=== PATIENT | male | born 1955 | race Caucasian/White ===

== ENCOUNTER → 2016-07-10 | Outpatient (CLI) | payer BC ==
--- NOTE | 2016-07-11 08:26 | XR ---
Cervical spine HISTORY: Neck pain, pain down right arm 5 views of the cervical spine Cervical vertebral bodies show preserved height, alignment is remarkable for anterolisthesis grade 1 C4-5. Multilevel spondylosis is present, loss of disc height at C3-4, C5-6. Bone mineralization is mi ldly reduced. Foraminal encroachment present on the left at C6-7. Lower right-sided foramina not well visualized. IMPRESSION: Degenerative disc disease, foraminal encroachment, cervical MRI may be of benefit
== END | disposition home or self-care (01) ==
LOC: RADXRYALE 10:57
PROVIDERS: ATTEND Physician Assistant Medical
DX: M50.10 Cervical disc disorder with radiculopathy, unspecified cervical region (principal)
CPT/HCPCS: 72050

== ENCOUNTER → 2016-07-30 | Outpatient (CLI) | payer BC ==
--- NOTE | 2016-07-30 12:29 | MR ---
MRI CERVICAL SPINE: CLINICAL HISTORY: Right arm pain, degenerative disc disease, cervicalgia, and cervical radiculopathy all per order. TECHNIQUE: Multiplanar, multisequence imaging of the cervical spine is performed without IV contrast. COMPARISON: None. FINDINGS: Sagittal images of the cervical spine show the craniocervical junction to appear within nor mal limits. The cervical and upper thoracic spinal cord is normal in course, caliber, and signal. V ertebral alignment is anatomic. The vertebral body and intravertebral disk heights are normal. There are posterior disc herniations effacing anterior thecal sac at C5-C6 and C6-C7 levels on sagittal im ages. The bone marrow signal intensity is within normal limits. No significant spurring is seen. Axial images show the C2-C3, C3-C4, C4-C5 levels all to appear within normal limits. Axial images at C5-C6 level show uncovertebral facet degenerative changes and broad-based posterior d isc protrusion effacing anterior thecal sac with moderate left and mild right-sided neural foraminal narrowing noted. Axial images at C6-C7 level show broad-based posterior disc protrusion effacing anterior thecal sac a nd causing moderate to severe bilateral neural foraminal narrowing. Axial images at C7-T1 level are felt within normal limits. IMPRESSION: Disc herniations at C5-C6 and C6-C7 level are noted as detailed above.
== END | disposition home or self-care (01) ==
LOC: RADMRIMAIN 11:36
PROVIDERS: ATTEND Physician Assistant Medical
DX: M50.122 Cervical disc disorder at C5-C6 level with radiculopathy (principal); M50.10 Cervical disc disorder with radiculopathy, unspecified cervical region; M79.601 Pain in right arm
CPT/HCPCS: 72141

== ENCOUNTER → 2017-03-26 | Outpatient (CLI) | payer BC ==
--- NOTE | 2017-03-26 14:52 | XR ---
EXAMINATION TYPE: XR toes RT DATE OF EXAM: 03/26/2017 COMPARISON: NONE HISTORY: Possible toast liver TECHNIQUE: 2 views distal digits FINDINGS: Joint spaces are preserved. There is varus deformity of the distal fifth and fourth digits. Valgus deformity of the first digit is present at the metatarsal phalangeal joint space. No radiopaque foreign bodies are evident. IMPRESSION: 1. No radiopaque foreign bodies identified. 2. Degenerative changes.
== END | disposition home or self-care (01) ==
LOC: RADXRYALE 13:36
PROVIDERS: ATTEND Physician Assistant Medical
DX: R93.7 Abnormal findings on diagnostic imaging of other parts of musculoskeletal system (principal); M79.674 Pain in right toe(s)

== ENCOUNTER → 2018-01-15 | Outpatient (CLI) | payer BC ==
--- NOTE | 2018-01-15 11:21 | XR ---
EXAMINATION TYPE: XR knee complete RT DATE OF EXAM: 01/15/2018 CLINICAL HISTORY: Right knee pain for one month TECHNIQUE: Three views of the right knee are obtained. COMPARISON: None. FINDINGS: There is no acute fracture/dislocation evident in right knee. Mild tricompartment joint sp radha loss is seen without significant spurring. The overlying soft tissue appears unremarkable. IMPRESSION: As above.
== END ==
LOC: RADXRYALE 10:26
PROVIDERS: ATTEND Physician Assistant
DX: M25.561 Pain in right knee (principal)

== ENCOUNTER 2018-07-08 20:44 | Emergency (ER) | payer BC ==
[2018-07-08] MEDS ORDERED: DIPH,PERTUS(ACELL)TETVAC-LF 0.5 ML VIAL IM ONE (21:26)
[2018-07-08] MEDS ORDERED: WATER FOR IRRIG, STERILE 1,000 ML BTL IRRIGATION ONE (22:08)
[2018-07-08] MEDS ORDERED: LIDOCAINE 1% INJ 10MG/ML (20 ML MDV) SQ STA (22:08)
--- NOTE | 2018-07-08 22:13 | XR ---
PROCEDURE: XR hand complete LT - 3V DATE AND TIME: 07/08/2018 9:48 PM CLINICAL INDICATION: PHH; Pain TECHNIQUE: Department protocol COMPARISON: None FINDINGS: There is no fracture or malalignment. Scattered mild osteoarthritis changes are noted, with a couple few moderate-degree osteoarthritis art iculations. The soft tissues demonstrate a 2 mm metallic radiopaque foreign body projecting medial, and slightly volar, to the distal shaft of the fourth proximal phalanx. There is mild fourth digit soft tissue swe lling. No soft tissue emphysema. IMPRESSION: Radiopaque foreign body.
--- NOTE | 2018-07-08 23:43 | ED ---
General Adult HPI - General Chief complaint: Wound/Laceration Stated complaint: L finger Laceration Time Seen by Provider: 07/08/18 21:26 Source: patient, RN notes reviewed, old records reviewed Mode of arrival: ambulatory Limitations: no limitations - History of Present Illness Initial comments: 62-year-old male patient past medical history of type 2 diabetes, hypertension presents ED for laceration to fourth digit of left hand. Patient states that he was driving a lawnmower when his left hand was cut by a piece of wood from a broken tree branch. Patient fourth that he has an approximately 5 cm laceration to the medial aspect of the fourth digit. Patient does not know day of last tetanus. Patient denies any other complaints or injuries. Systemic: Pt denies fatigue, myalgia, fever/chills, rash. Pt denies weakness, night sweats, weight loss. Neuro: Pt denies headache, visual disturbances, syncope or pre-syncope. HEENT: Pt denies ocular discharge or irritation, otalgia, rhinorrhea, pharyngitis or notable lymphadenopathy. Cardiopulmonary: Pt denies chest pain, SOB, heart palpitations, dyspnea on exertion. Abdominal/GI: Pt denies abdominal pain, n/v/d. : Pt denies dysuria, burning w/ urination, frequency/urgency. Denies new onset urinary or bowel incontinence. MSK: Pt denies myalgia, loss of strength or function in extremities. Neuro: Pt denies new onset weakness, paresthesias. - Related Data Previous Rx's Medication Instructions Recorded Cephalexin [Keflex] 500 mg PO Q6HR 7 Days #28 cap 07/08/18 Allergies Allergy/AdvReac Type Severity Reaction Status Date / Time No Known Allergies Allergy Verified 07/08/18 21:30 Review of Systems ROS Statement: Those systems with pertinent positive or pertinent negative responses have been documented in the HPI. ROS Other: All systems not noted in ROS Statement are negative. Past Medical History Past Medical History: Diabetes Mellitus, GERD/Reflux Additional Past Medical History / Comment(s): colonic polyps History of Any Multi-Drug Resistant Organisms: None Reported Past Surgical History: No Surgical Hx Reported Past Anesthesia/Blood Transfusion Reactions: Unable to Obtain Past Psychological History: Unable to Obtain Smoking Status: Never smoker Past Alcohol Use History: Daily, Occasional Past Drug Use History: None Reported General Exam - General Exam Comments Initial Comments: Constitutional: NAD, AOX3, Pt has pleasant affect. HEENT: NC/AT, trachea midline, neck supple, no lymphadenopathy. Posterior pharynx non erythematous, without exudates. External ears appear normal, without discharge. Mucous membranes moist. Eyes PERRLA, EOM intact. There is no scleral icterus. No pallor noted. Cardiopulmonary: RRR, no murmurs, rubs or gallops, no JVD noted. Lungs CTAB in anterior and posterior saini. No peripheral edema. Abdominal exam: Abdomen soft and non-distended. Abdomen non-tender to palpation in all 4 quadrants. Bowel sounds active in LLQ. No hepatosplenomegaly. No ecchymosis Neuro: CN II-XII grossly intact. No nuchal rigidity. MSK: 5 cm laceration to the medial aspect of the fourth digit. Full active range of motion of digit flexion section intact at MCP by mouth P DIP joint. Wound vigorously irrigated with 1 L normal saline. Sports, no foreign body noted. Approximated with 8 simple interrupted sutures. No posterior calf tenderness bilaterally, homans sign negative bilaterally. Posterior tibialis and radial pulse +2 bilaterally. Sensation intact in upper and lower extremities. Full active ROM in upper and lower extremities, 5/5 stregnth. Limitations: no limitations Course Vital Signs 07/08/18 20:56 Temperature 98.5 F Pulse Rate 85 Respiratory 18 Rate Blood Pressure 143/94 O2 Sat by Pulse 95 Oximetry Procedures - Laceration Laceration #1 Consent Obtained: verbal consent Indication: laceration Site: other (L 4th finger ) Size (cm): 5 Description: linear Depth: simple, single layer Anesthetic Used: lidocaine 1% Anesthesia Technique: nerve block Amount (mls): 4 Pre-repair: wound explored, irrigated extensively (1L NS ), deep structures intact Type of Sutures: nylon Size of Sutures: 5-0 Number of Sutures: 8 Technique: simple, interrupted Patient Tolerated Procedure: well, no complications Medical Decision Making - Medical Decision Making 62-year-old male patient past medical history of type 2 diabetes, hypertension presents ED for laceration to fourth digit of left hand. Patient states that he was driving a lawnmower when his left hand was cut by a piece of wood from a broken tree branch. Patient fourth that he has an approximately 5 cm laceration to the medialaspect of the fourth digit. Patient does not know day of last tetanus. Patient denies any other complaints or injuries. Patient vital signs stable, afebrile. Physical exam displayed: 5 cm laceration to the lateral aspect of the fourth digit. Full active range of motion of digit flexion section intact at MCP by mouth P DIP joint. Wound vigorously irrigated with 1 L normal saline. Sports, no foreign body noted. Approximated with 8 simple interrupted sutures. Plain film of left hand displayed a 2 mm metallic radiopaque foreign body projecting medial and slightly low to the distal shaft of the fourth proximal phalanx. Patient does not have any known history of a piece of metal in his hand. She is adamant however that he is only cut with a piece of wood and there is no metal involved in the laceration. Patient will be discharged with antibiotics and follow up with orthopedic surgeon. Patient tetanus updated. Patient will monitor for signs symptoms of infection. Patient was understanding. Patient to follow up with primary care provider in 1-2 days. Patient return to ER if condition worsens in any way. Case discussed with Dr. Nuno. Disposition Clinical Impression: Laceration, Laceration with foreign body Disposition: HOME SELF-CARE Condition: Stable Instructions (If sedation given, give patient instructions): Laceration (ED) Additional Instructions: Patient to adhere to previously discussed treatment plan and will take medication(s) as directed. Patient to follow up with PCP in 1-2 days. Patient to return to ED if symptoms do not improve. Follow-up with hand surgeon tomorrow. Take antibiotics as prescribed. Follow up with primary care provider in 1-2 days. Return to ER if condition worsens. Prescriptions: Cephalexin [Keflex] 500 mg PO Q6HR 7 Days #28 cap Is patient prescribed a controlled substance at d/c from ED?: No Referrals: Raul Lew DO [Primary Care Provider] - 1-2 days Jeison Burr DO [Medical Doctor] - 1-2 days
--- NOTE | 2018-07-08 23:51 | ED ---
Disposition Clinical Impression: Laceration, Laceration with foreign body Disposition: HOME SELF-CARE Condition: Stable Instructions (If sedation given, give patient instructions): Laceration (ED) Additional Instructions: Patient to adhere to previously discussed treatment plan and will take medication(s) as directed. Patient to follow up with PCP in 1-2 days. Patient to return to ED if symptoms do not improve. Follow-up with hand surgeon tomorrow. Take antibiotics as prescribed. Follow up with primary care provider in 1-2 days. Return to ER if condition worsens. Please return for suture removal: Hand: 7-10 days Face: 5 days Chest/abdomen: 12-14 days Extremities: 7-10 days Scalp: 7 days Eyebrow: 5-7 days Foot/sole: 12-14 days Please monitor for signs and symptoms of infection including: redness, warmth, drainage, discharge. Please return to ED if these signs or symptoms occur, new signs or symptoms develop or if condition worsens in anyway. Prescriptions: Cephalexin [Keflex] 500 mg PO Q6HR 7 Days #28 cap Is patient prescribed a controlled substance at d/c from ED?: No Referrals: Jeison Burr DO [Medical Doctor] - 1-2 days Raul Lew DO [Primary Care Provider] - 1-2 days
[2018-07-09] VITALS: BP 139/84; PULSE 80; RESP 16; TEMP 98.7
== END 2018-07-08 23:59 | disposition home or self-care (01) ==
LOC: EC 20:44
DX: S61.215A Laceration without foreign body of left ring finger without damage to nail, initial encounter (principal); M79.5 Residual foreign body in soft tissue; Z23 Encounter for immunization; W45.8XXA Other foreign body or object entering through skin, initial encounter; Y93.I9 Activity, other involving external motion; Y92.009 Unspecified place in unspecified non-institutional (private) residence as the place of occurrence of the external cause
CPT/HCPCS: 73130; 90715; 99283; 12002; 90471; J2001

== ENCOUNTER → 2019-09-15 | Outpatient (CLI) | payer BC ==
--- NOTE | 2019-09-15 13:00 | CT ---
EXAMINATION TYPE: CT sinus wo con DATE OF EXAM: 09/15/2019 COMPARISON: 01/23/2012 HISTORY: Chronic sinusitis CT DLP: 635.1 mGycm. Automated Exposure Control for Dose Reduction was Utilized. TECHNIQUE: CT scan of the sinuses is performed without contrast, axial images are obtained, coronal r eformatted images are also reviewed. FINDINGS: Postsurgical changes are noted. Ostium of the maxillary sinus is widely patent. There is mu cosal thickening involving the ethmoid, sphenoid and maxillary sinuses to a mild degree. No air-fluid levels. Hypoplastic frontal sinus. Intracranial structures symmetric. Visualized portion of mastoid air cells show no abnormal opacifica tion. The globes are intact bilaterally. IMPRESSION: 1. Chronic sinusitis with postsurgical changes. Ostium of the maxillary sinus remains patent..
== END | disposition home or self-care (01) ==
LOC: RADCTMAIN 12:32
PROVIDERS: ATTEND Otolaryngology
DX: J32.9 Chronic sinusitis, unspecified (principal); Z98.890 Other specified postprocedural states
CPT/HCPCS: 70486

== ENCOUNTER → 2020-12-31 | Outpatient (CLI) | payer MEDICAID ==
--- NOTE | 2020-12-31 18:07 | XR ---
EXAMINATION TYPE: XR foot complete RT DATE OF EXAM: 12/31/2020 COMPARISON: 08/28/2014 HISTORY: Pain TECHNIQUE: 3 view right foot FINDINGS: Hallux valgus deformity is present. There is mild subluxation of the proximal phalanx on th e first metatarsal. Mild diffuse proximal and distal interphalangeal joint space narrowing is present . There is varus deformity of the distal fourth and fifth digits. No acute fracture is evident. Note is made of prior fracture repair in the distal tibia. Soft tissues appear normal. IMPRESSION: 1. No acute osseous abnormality. 2. Hallux valgus deformity
== END | disposition home or self-care (01) ==
LOC: RADXRYALE 11:11
PROVIDERS: ATTEND Physician Assistant Medical
DX: M79.671 Pain in right foot (principal); M21.071 Valgus deformity, not elsewhere classified, right ankle

== ENCOUNTER → 2022-05-28 | Outpatient (CLI) | payer MEDICARE ==
--- NOTE | 2022-05-28 10:24 | CT ---
EXAMINATION TYPE: CT sinus wo con DATE OF EXAM: 05/28/2022 COMPARISON: 09/15/2019 HISTORY: Chronic sinusitis CT DLP: 591 mGycm. Automated Exposure Control for Dose Reduction was Utilized. TECHNIQUE: CT scan of the sinuses is performed without contrast, axial images are obtained, coronal r eformatted images are also reviewed. FINDINGS: Orbits are symmetric in appearance. Intracranial structures mild generalized degenerative c hange intracranially. There is evidence of postsurgical changes involving the maxillary sinuses. The ostium of the maxillar y sinuses remain widely patent. Mild mucosal thickening involving the remaining portions of the maxil cory sinus with a probable small mucous retention cyst or polyp involving the inferior margin of the right maxillary sinus. There is a mild to moderate mucosal thickening involving the ethmoid air cells . Frontal sinus is hypoplastic. Sphenoid sinus demonstrates moderate mucosal thickening. Nasopharynx and oropharynx are symmetric. IMPRESSION: 1. Findings are compatible with prior surgical change with the fred-ostium of the maxillary sinuses wi irina patent. 2. Findings are compatible with mild chronic sinusitis.
== END | disposition home or self-care (01) ==
LOC: RADCTMAIN 09:43
PROVIDERS: ATTEND Otolaryngology
DX: J32.9 Chronic sinusitis, unspecified (principal)
CPT/HCPCS: 70486

== ENCOUNTER 2022-07-30 10:33 | Day surgery (SDC) | payer MEDICARE ==
[2022-07-25 14:45] VITALS: BMI 30.5
[~2022-07-30 10:33] MED LIST: DEXAMETHASONE SOD PHOSPHATE 4 MG/ML 1 ML VIAL IV ONE; FAMOTIDINE 20 MG/2 ML VIAL IV PRN; HYDROmorphone 0.5 MG/0.5 ML SYRINGE IVP PRN; LACTATED RINGERS 1,000 ML IV SCH; LIDOCAINE 1% (10MG/ML) FOR IV START INTRADERMA PRN; MIDAZOLAM 2 MG/2 ML VIAL IV PRN; ONDANSETRON 4 MG/2 ML VIAL IVP ONE; ONDANSETRON 4 MG/2 ML VIAL IVP PRN
[2022-07-30] MEDS: OXYMETAZOLINE 0.05% NASL SPRAY 1 SPRAY BOTTLE EA NOSTRIL PRN ×3 (10:58→11:08)
[2022-07-30 11:04] LABS: Glucose,Whole Blood 105 mg/dL (70-110)
[2022-07-30 11:05] VITALS: RESP 16; TEMP 98
[2022-07-30] MEDS ORDERED: OXYMETAZOLINE 0.05% NASL SPRAY 1 SPRAY BOTTLE EA NOSTRIL ONE ×2 (11:13→11:18)
[2022-07-30] MEDS ORDERED: ePHEDrine 50 MG/ML 1 ML VIAL ONE (11:54)
[2022-07-30] MEDS ORDERED: PROPOFOL 10 MG/ML 20 ML VIAL IV ONE (11:54)
[2022-07-30] MEDS ORDERED: MIDAZOLAM 2 MG/2 ML VIAL ONE (11:54)
[2022-07-30] MEDS ORDERED: LIDOCAINE 2% INJ 20 MG/ML (2 ML VIAL) ONE (11:54)
[2022-07-30] MEDS ORDERED: PHENYLEPHRINE-0.9% NACL SYG 1,000 MCG/10 ML SYRINGE ONE (11:54)
[2022-07-30] MEDS ORDERED: fentaNYL (PF) 50 MCG/ML 2 ML AMP ONE (11:54)
[2022-07-30] MEDS ORDERED: SUCCINYLCHOLINE CHLORIDE 200 MG/10 ML VIAL IV ONE (11:54)
[2022-07-30] MEDS ORDERED: LIDOCAINE 2%-EPI 1:100,000 20 ML VIAL SUBMUCOSAL ONE (12:12)
--- NOTE | 2022-07-30 12:40 | P.OP ---
Date of Procedure: 07/30/22 Preoperative Diagnosis: Chronic sinusitis Postoperative Diagnosis: Same Procedure(s) Performed: Bilateral revision endoscopic sinus surgery including bilateral maxillary antrostomy with removal of tissue from maxillary sinuses bilateral anterior and posterior ethmoidectomy and bilateral sphenoidotomy with removal of tissue from the sphenoid sinuses Anesthesia: CASPER Surgeon: Karl Ibanez Estimated Blood Loss (ml): 5 Pathology: other (Sinus contents) Condition: stable Disposition: PACU Indications for Procedure: This 56-year-old white male who previously had septoplasty and endoscopic sinus surgery and did well initially but has had some increase in postnasal drainage and congestion more recently with signs of chronic inflammation in the maxillary ethmoid and sphenoid sinuses on CT despite the postsurgical changes also noted Operative Findings: The maxillary ostia were patent although there was some mucoid drainage in the maxillary sinuses as well as mild polypoid change of the mucosa. Also sphenoidotomies were patent but narrow and therefore these were enlarged with mucosal thickening in the sphenoid sinuses and small polyps. There were a few residual anterior posterior ethmoid air cells bilaterally which were opened with mild mucosal thickening Description of Procedure: Patient was brought in the operative suite and placed in a supine position. The patient underwent induction of general anesthesia with oral endotracheal intubation without difficulty. The patient was prepped and draped in usual aseptic fashion with orbits in the operating field for monitoring route the case and computed tomography scan on the computer screen for review throughout the case. 1% lidocaine with 1 [id number] epinephrine was infused submucosally lateral nasal wall and anterior middle turbinates bilaterally. This was left to work for 7 minutes vasoconstrictive effect. Full 0 endoscopic examination is performed bilaterally. Proceeding on the left the middle turbinate was medialized with a Acushnet elevator. Maxillary ostium was visualized and was enlarged minimally anteriorly with side-biting forceps and the maxillary sinus was explored with 30 and 70 endoscope with mild small polyps removed giraffe forceps. Anterior and posterior ethmoidectomy was then completed under 0 and 30 endoscope. The sphenoidotomy was then performed under 0 endoscopic evaluation with straight suction and straight Blakesley forceps explored and with straight Blakesley forceps. Attention was then turned to the right where the procedures were followed as they were on the left including revision of the maxillary ostium with removal of tissue from the maxillary sinus minimally medialization middle turbinate prior to that completion of the anterior posterior ethmoidectomy and sphenoidotomy with exploration and removal of ti ssue. Once this was completed a pledget of xerogel nasal dressing was placed in the middle meatus under direct visualization. The patient was suctioned in oral gastric fashion and was allowed to emerge from general anesthesia having tolerated procedure well was excised in the operating suite and transferred postoperative recovery area in satisfactory condition.
[2022-07-30] MEDS ORDERED: hydrALAZINE HCL 20 MG/ML 1 ML VIAL IVP ONE ×2 (13:05→13:12)
[2022-07-30 13:56] VITALS: BP 145/91; PULSE 98
== END 2022-07-30 14:14 | disposition home or self-care (01) ==
LOC: OR 10:33
PROVIDERS: ATTEND Otolaryngology
DX: J32.3 Chronic sphenoidal sinusitis (principal); J32.0 Chronic maxillary sinusitis; J34.2 Deviated nasal septum; I10 Essential (primary) hypertension; E11.9 Type 2 diabetes mellitus without complications; K21.9 Gastro-esophageal reflux disease without esophagitis; Z87.891 Personal history of nicotine dependence; Z82.49 Family history of ischemic heart disease and other diseases of the circulatory system; Z79.84 Long term (current) use of oral hypoglycemic drugs; Z79.899 Other long term (current) drug therapy
CPT/HCPCS: 31259; 31267; 88305; J2250; J0330; J0360; J1100; J0690; J2405; J3010; J2370; J2704; J1170; J2001